=== PATIENT | female | born 1985 | race Two or more races ===

== ENCOUNTER 2021-05-06 16:02 | Emergency (ER) | payer MEDICAID ==
[~2021-05-06] VITALS: Ht 162.6 cm; Wt 61.2 kg
[2021-05-06 16:02] VITALS: BP 164/93
== END 2021-05-06 19:50 | disposition home or self-care (01) ==
LOC: ER 16:02
DX: F41.9 Anxiety disorder, unspecified (principal); Z88.2 Allergy status to sulfonamides; Z76.0 Encounter for issue of repeat prescription

== ENCOUNTER 2021-05-21 16:49 | Emergency (ER) | payer MEDICAID ==
[~2021-05-21] VITALS: Ht 160 cm; Wt 59.0 kg
[2021-05-21 22:07] VITALS: BP 134/67
== END 2021-05-21 22:10 | disposition home or self-care (01) ==
LOC: ER 16:49
DX: T20.07XA Burn of unspecified degree of neck, initial encounter (principal); B99.9 Unspecified infectious disease; Z88.2 Allergy status to sulfonamides; X58.XXXA Exposure to other specified factors, initial encounter; Y93.89 Activity, other specified; Y92.89 Other specified places as the place of occurrence of the external cause; Y99.8 Other external cause status

== ENCOUNTER 2021-06-05 18:52 | Emergency (ER) | payer MEDICAID ==
[~2021-06-05] VITALS: Ht 160 cm; Wt 59.0 kg
[2021-06-06] MEDS ORDERED: OXYCODONE W/ ACETAMINOPHEN 5/325MG TABLET PO ONE (03:45)
[2021-06-06] MEDS ORDERED: NEOMYCIN-BACITRACIN-POLYM UNITDOSE PKG TOP OINT TOP ONE (03:45)
[2021-06-06 04:40] VITALS: BP 136/78
== END 2021-06-06 04:55 | disposition home or self-care (01) ==
LOC: ER 18:52
DX: T20.30XD Burn of third degree of head, face, and neck, unspecified site, subsequent encounter (principal); T20.37XD Burn of third degree of neck, subsequent encounter; T31.22 Burns involving 20-29% of body surface with 20-29% third degree burns; Z76.0 Encounter for issue of repeat prescription; X02.0XXD Exposure to flames in controlled fire in building or structure, subsequent encounter

== ENCOUNTER 2021-06-19 19:46 | Emergency (ER) | payer MEDICAID ==
[~2021-06-19] VITALS: Ht 162.6 cm; Wt 54.4 kg
[2021-06-19] MEDS ORDERED: MORPHINE SULFATE 4 MG/ML SYR/VIAL IV ONE (20:00)
[2021-06-20] MEDS: cloNIDine HCL 0.1 MG TAB PO ONE ×2 (08:32→08:42)
[2021-06-20] MEDS ORDERED: LORazepam 0.5 MG TAB PO ONE (10:15)
[2021-06-20 10:16] VITALS: BP 177/89
== END 2021-06-20 10:47 | disposition home or self-care (01) ==
LOC: ER 19:46
DX: F41.8 Other specified anxiety disorders (principal); Z76.0 Encounter for issue of repeat prescription; Z88.2 Allergy status to sulfonamides
CPT/HCPCS: 96374; 99283; J2270

== ENCOUNTER 2021-07-23 10:27 | Emergency (ER) | payer MEDICAID ==
[~2021-07-23] VITALS: Ht 160 cm; Wt 56.7 kg
[2021-07-23] MEDS ORDERED: LORazepam 0.5 MG TAB PO ONE (12:30)
[2021-07-23] MEDS ORDERED: HYDROcodone-ACET 10/325MG TAB PO ONE (12:30)
[2021-07-23 13:06] VITALS: BP 160/82
== END 2021-07-23 13:09 | disposition home or self-care (01) ==
LOC: ER 10:27
DX: M79.10 Myalgia, unspecified site (principal); F41.9 Anxiety disorder, unspecified; Z76.0 Encounter for issue of repeat prescription; Z88.2 Allergy status to sulfonamides
CPT/HCPCS: 81025

== ENCOUNTER 2021-08-08 18:42 | Emergency (ER) | payer MEDICAID ==
[~2021-08-08] VITALS: Ht 162.6 cm; Wt 56.7 kg
[2021-08-08 18:43] VITALS: BP 182/100
[2021-08-08] MEDS ORDERED: AMLO-489 PO (19:51)
[2021-08-08 19:52] LABS: Basophils # (auto) 0 10 ^3/uL (0-0.2); Basophils % (auto) 0.7 % (0.0-2.0); Eosinophils # (auto) 0 10 ^3/uL (0-0.8); Eosinophils % (auto) 0.4 % (0.0-7.0); Hemoglobin 12.2 g/dL (12.2-16.2); Lymphocytes # (auto) 2.1 10 ^3/uL (0.4-5.4); Lymphocytes % (auto) 36.2 % (10.0-50.0); Mean Corpuscular Hemoglobin 27.5 pg (28.0-32.0); Mean Corpuscular Volume 80.8 fL (80.0-100.0); Monocytes # (auto) 0.4 10 ^3/uL (0-1.3); Monocytes % (auto) 7.2 % (0.0-12.0); Neutrophils # (auto) 3.2 10 ^3/uL (1.6-8.6); Neutrophils % (auto) 55.5 % (37.0-80.0); Nucleated Red Blood Cells % 0.1 %; Red Blood Cells 4.45 10^6/uL (4.0-5.20); Red Cell Distribution Width 15.7 % (11.8-14.3); White Blood Cell 5.8 10^3/uL (4.4-10.8)
[2021-08-08 19:58] LABS: Calcium 8.5 mg/dL (8.5-10.1); Potassium 3.6 mmol/L (3.5-5.1)
[2021-08-08 20:06] LABS: Albumin 3.8 g/dL (3.4-5.0); BUN/Creatinine Ratio 18.3; Bilirubin, Total 0.2 mg/dL (0.2-1.0); Total Protein 7.2 g/dL (6.4-8.2)
== END 2021-08-08 19:55 | disposition left against medical advice (07) ==
LOC: ER 18:45
DX: R07.89 Other chest pain (principal); Z53.21 Procedure and treatment not carried out due to patient leaving prior to being seen by health care provider
CPT/HCPCS: 36415; 80053; 84484; 85025; 93005

== ENCOUNTER 2021-08-20 14:40 | Emergency (ER) | payer MEDICAID ==
[~2021-08-20] VITALS: Ht 162.6 cm; Wt 54.4 kg
[~2021-08-20 14:40] MED LIST: AMLO-489 PO
[2021-08-20 16:00] VITALS: BP 142/83
[2021-08-20] MEDS ORDERED: HYDROcodone-ACET 10/325MG TAB PO ONE (16:00)
[2021-08-20] MEDS ORDERED: LORA1TAB23 PO (16:03)
[2021-08-20] MEDS ORDERED: HYDR-4798 PO (16:03)
== END 2021-08-20 16:53 | disposition home or self-care (01) ==
LOC: ER 14:40
DX: T20.20XD Burn of second degree of head, face, and neck, unspecified site, subsequent encounter (principal); T21.20XD Burn of second degree of trunk, unspecified site, subsequent encounter; Z76.0 Encounter for issue of repeat prescription; Z88.2 Allergy status to sulfonamides

== ENCOUNTER 2021-08-22 19:06 | Emergency (ER) | payer MEDICAID ==
[~2021-08-22] VITALS: Ht 162.6 cm; Wt 54.4 kg
[~2021-08-22 19:06] MED LIST changes: +HYDR-4798 PO; +LORA1TAB23 PO
[2021-08-22] MEDS ORDERED: PERCOT PO (20:41)
[2021-08-22] MEDS ORDERED: OXYCODONE W/ ACETAMINOPHEN 5/325MG TABLET PO ONE (21:00)
[2021-08-22 21:10] VITALS: BP 154/94
== END 2021-08-22 22:38 | disposition home or self-care (01) ==
LOC: ER 19:08
DX: F41.9 Anxiety disorder, unspecified (principal); Z88.2 Allergy status to sulfonamides; Z76.0 Encounter for issue of repeat prescription

== ENCOUNTER 2021-09-03 01:52 | Emergency (ER) | payer MEDICAID ==
[~2021-09-03] VITALS: Ht 162.6 cm; Wt 58.1 kg
[~2021-09-03 01:52] MED LIST changes: +PERCOT PO
[2021-09-03] MEDS ORDERED: LORazepam 0.5 MG TAB PO ONE (02:30)
[2021-09-03 05:37] VITALS: BP 148/73
[2021-09-03] MEDS ORDERED: LORA0.5T20 PO ×2 (05:56→08:12)
[2021-09-03] MEDS ORDERED: PREG50CA PO ×3 (05:56→08:15)
[2021-09-03] MEDS ORDERED: CELE100C82 PO (05:56)
== END 2021-09-03 08:22 | disposition home or self-care (01) ==
LOC: ER 02:05
DX: F41.9 Anxiety disorder, unspecified (principal); Z76.0 Encounter for issue of repeat prescription; Z79.899 Other long term (current) drug therapy; Z88.2 Allergy status to sulfonamides
CPT/HCPCS: 93005

== ENCOUNTER 2021-09-09 00:57 | Emergency (ER) | payer MEDICAID ==
[~2021-09-09] VITALS: Ht 162.6 cm; Wt 58.1 kg
[~2021-09-09 00:57] MED LIST changes: +CELE100C82 PO; +LORA0.5T20 PO; +PREG50CA PO
[2021-09-09 00:58] VITALS: BP 189/114
[2021-09-09] MEDS ORDERED: OXYCODONE W/ ACETAMINOPHEN 5/325MG TABLET PO ONE (01:45)
== END 2021-09-09 02:04 | disposition home or self-care (01) ==
LOC: ER 00:58
DX: T31.33 Burns involving 30-39% of body surface with 30-39% third degree burns (principal); Z76.0 Encounter for issue of repeat prescription; Z79.899 Other long term (current) drug therapy; Z88.2 Allergy status to sulfonamides; X97.XXXD Assault by smoke, fire and flames, subsequent encounter

== ENCOUNTER 2021-09-22 17:49 | Emergency (ER) | payer MEDICAID ==
[~2021-09-22] VITALS: Ht 162.6 cm; Wt 58.1 kg
[2021-09-22 17:58] VITALS: BP 165/108
[2021-09-22] MEDS ORDERED: LORA0.5T20 PO (18:09)
[2021-09-22] MEDS ORDERED: oxyCODONE ER 10 MG TAB PO ONE (18:15)
== END 2021-09-22 18:25 | disposition home or self-care (01) ==
LOC: ER 17:49
DX: F41.9 Anxiety disorder, unspecified (principal); Z76.0 Encounter for issue of repeat prescription; Z88.2 Allergy status to sulfonamides

== ENCOUNTER 2021-10-09 20:33 | Emergency (ER) | payer MEDICAID ==
[~2021-10-09] VITALS: Ht 162.6 cm; Wt 56.2 kg
[2021-10-09] MEDS ORDERED: LORA0.5T20 PO (20:44)
[2021-10-09] MEDS ORDERED: HYDROcodone-ACET 10/325MG TAB PO ONE (20:45)
[2021-10-09] MEDS ORDERED: LORazepam 0.5 MG TAB PO ONE (20:45)
[2021-10-09 21:25] VITALS: BP 163/99
== END 2021-10-09 21:33 | disposition home or self-care (01) ==
LOC: ER 20:39
DX: F41.9 Anxiety disorder, unspecified (principal); Z76.0 Encounter for issue of repeat prescription; Z88.2 Allergy status to sulfonamides

== ENCOUNTER → 2021-10-09 | Emergency (ER) | payer MEDICAID ==
[~2021-10-09] VITALS: Ht 162.6 cm; Wt 55.8 kg
[2021-10-09 16:43] VITALS: BP 163/93
== END | disposition left against medical advice (07) ==
LOC: ER 16:42
DX: Z76.0 Encounter for issue of repeat prescription (principal); Z53.21 Procedure and treatment not carried out due to patient leaving prior to being seen by health care provider